=== PATIENT | female | born 1940 | race Caucasian/White ===

== ENCOUNTER → 2020-06-18 | Outpatient (REF) | payer MEDICARE ==
[2020-06-18 12:31] LABS: BASO # 0.1 10^3/uL (0.0-0.2); BASO % 0.7 % (0.0-1.0); EOS # 0.3 10^3/uL (0.0-0.5); EOS % 3.7 % (0.0-3.0); HEMATOCRIT 44.3 % (36.0-47.0); HEMOGLOBIN 15.1 g/dl (12.0-15.5); LYMPH # 1.3 10^3/uL (1.5-5.0); LYMPH % 17.2 % (24.0-44.0); MEAN CORPUSCULAR HEMOGLOBIN 33.8 pg (27.0-33.0); MEAN CORPUSCULAR HGB CONC 34.1 g/dl (32.0-36.5); MEAN CORPUSCULAR VOLUME 99.1 fl (80.0-96.0); MONO # 0.6 10^3/uL (0.0-0.8); MONO % 7.9 % (2.0-8.0); NEUTROPHILS # 5.2 10^3/uL (1.5-8.5); NEUTROPHILS % 70.4 % (36.0-66.0); PLATELET COUNT, AUTOMATED 163 10^3/uL (150-450); RED BLOOD COUNT 4.47 10^6/uL (4.00-5.40); WHITE BLOOD COUNT 7.3 10^3/uL (4.0-10.0)
[2020-06-18 13:01] LABS: ALBUMIN 4.1 GM/DL (3.2-5.2); BILIRUBIN,TOTAL 0.7 MG/DL (0.2-1.0); CALCIUM LEVEL 9.4 MG/DL (8.8-10.2); CHOLESTEROL RISK RATIO 4.435 (<5); CREATININE FOR GFR 1.39 MG/DL (0.55-1.30); GLOMERULAR FILTRATION RATE 38.7 (>32); POTASSIUM SERUM 4.3 MEQ/L (3.5-5.1); TOTAL PROTEIN 6.4 GM/DL (6.4-8.2)
== END ==
LOC: M SFHCADAM 07:51
PROVIDERS: ATTEND Family Medicine
DX: I25.118 Atherosclerotic heart disease of native coronary artery with other forms of angina pectoris (principal); R06.00 Dyspnea, unspecified

== ENCOUNTER → 2020-06-18 | Outpatient (CLI) | payer MEDICARE ==
--- NOTE | 2020-06-18 09:04 | REP ---
INDICATION: CORONARY ARTERY DISEASE COMPARISON: None. TECHNIQUE: PA and lateral. FINDINGS: Mediastinum and cardiac silhouette are within normal limits. Lung jaramillo demonstrate chronic emphysematous and interstitial changes. No acute consolidation, effusion, or pneumothorax. Skeletal structures demonstrate osteopenia and degenerative changes. IMPRESSION: COPD and chronic appearing changes. <Electronically signed by Bryant Escudero > 06/18/20 0901
== END ==
LOC: M ADAMS 07:54
PROVIDERS: ATTEND Family Medicine
DX: J44.9 Chronic obstructive pulmonary disease, unspecified (principal); M85.88 Other specified disorders of bone density and structure, other site; I25.118 Atherosclerotic heart disease of native coronary artery with other forms of angina pectoris; R06.00 Dyspnea, unspecified

== ENCOUNTER → 2020-07-17 | Outpatient (CLI) | payer MEDICARE ==
--- NOTE | 2020-07-17 11:59 | REP ---
INDICATION: STENOSIS. COMPARISON: None. TECHNIQUE: Bilateral carotid artery duplex ultrasound. FINDINGS: Peak flow velocities: Right left Internal carotid artery 55 point is a cm/sec 43.5 cm/sec Int. Carotid diastolic 15.7 cm/sec 112.0 cm/sec External carotid artery 67.6 cm/sec 102.9 cm/sec Common carotid artery 93.6 cm/sec 72.3 cm/sec ICA-CCA ratio 0.59 0.60 There is moderate atheromatous plaque bilaterally from the distal common carotid arteries into the bulbs and into the proximal internal carotid arteries and external carotid arteries bilaterally. Peak flow velocities are normal bilaterally. There is no stenosis on the right or the left. There is antegrade flow in the vertebral arteries bilaterally. IMPRESSION: Moderate atheromatous plaque bilaterally. There are no stenoses. There is antegrade flow in the vertebral arteries bilaterally. <Electronically signed by James Rainey > 07/17/20 [id number]
== END ==
LOC: M RAD 09:46 → EDSEX 10:30
PROVIDERS: ATTEND Internal Medicine Cardiovascular Disease
DX: I65.23 Occlusion and stenosis of bilateral carotid arteries (principal)